=== PATIENT | male | born 1990 | race Caucasian/White ===

== ENCOUNTER 2017-11-04 13:07 | Emergency (ER) | payer MEDICAID ==
[~2017-11-04] VITALS: Ht 180.3 cm; Wt 65.9 kg
[2017-11-04 13:56] VITALS: BP 129/70; Ht 180.3 cm; Wt 65.9 kg
[2017-11-04] MEDS ORDERED: IBUPROFEN800 MG PO (15:21)
[2017-11-04] MEDS ORDERED: CLEOCIN HCL300 MG PO (15:21)
[2017-11-05] MEDS ORDERED: NORCO 7.5/325 T1 TA1 PO (13:54)
== END 2017-11-04 15:29 | disposition home or self-care (01) ==
LOC: D.ER 13:07
DX: L02.512 Cutaneous abscess of left hand (principal); Z87.820 Personal history of traumatic brain injury; F17.200 Nicotine dependence, unspecified, uncomplicated

== ENCOUNTER 2017-11-05 12:27 | Emergency (ER) | payer MEDICAID ==
[~2017-11-05] VITALS: Ht 180.3 cm; Wt 67.3 kg
[~2017-11-05 12:27] MED LIST: CLEOCIN HCL300 MG PO; IBUPROFEN800 MG PO
[2017-11-05 12:41] VITALS: Ht 180.3 cm; Wt 67.3 kg
[2017-11-05] MEDS ORDERED: NORCO 7.5/325 T1 TA1 PO (13:54)
[2017-11-05 14:27] VITALS: BP 132/91
== END 2017-11-05 14:30 | disposition home or self-care (01) ==
LOC: D.ER 12:27
DX: S60.411A Abrasion of left index finger, initial encounter (principal); W18.30XA Fall on same level, unspecified, initial encounter; Y93.89 Activity, other specified; Y92.410 Unspecified street and highway as the place of occurrence of the external cause; S61.301A Unspecified open wound of left index finger with damage to nail, initial encounter; Z87.820 Personal history of traumatic brain injury; F17.200 Nicotine dependence, unspecified, uncomplicated

== ENCOUNTER 2018-01-07 10:31 | Emergency (ER) | payer MEDICAID ==
[~2018-01-07] VITALS: Ht 180.3 cm; Wt 69.5 kg
[~2018-01-07 10:31] MED LIST changes: +NORCO 7.5/325 T1 TA1 PO
[2018-01-07 10:43] VITALS: Ht 180.3 cm; Wt 69.5 kg
[2018-01-07] MEDS ORDERED: ULTRAM50 MG PO (11:02)
[2018-01-07] MEDS ORDERED: MINOCIN100 MG PO (11:02)
[2018-01-07 11:14] VITALS: BP 114/76
== END 2018-01-07 11:14 | disposition home or self-care (01) ==
LOC: D.ER 10:31
DX: L03.114 Cellulitis of left upper limb (principal); Z87.820 Personal history of traumatic brain injury; F17.200 Nicotine dependence, unspecified, uncomplicated

== ENCOUNTER 2018-05-27 15:47 | Emergency (ER) | payer MEDICAID ==
[~2018-05-27] VITALS: Ht 180.3 cm; Wt 77.3 kg
[~2018-05-27 15:47] MED LIST changes: +MINOCIN100 MG PO; +ULTRAM50 MG PO
[2018-05-27 15:48] VITALS: Ht 180.3 cm; Wt 77.3 kg
[2018-05-27] MEDS ORDERED: AUGMENTIN 875-11 TAB PO (17:01)
[2018-05-27] MEDS ORDERED: IBUPROFEN800 MG PO (17:01)
[2018-05-27 17:21] VITALS: BP 127/68
== END 2018-05-27 17:22 | disposition home or self-care (01) ==
LOC: D.ER 15:47
DX: S00.85XA Superficial foreign body of other part of head, initial encounter (principal); W22.8XXA Striking against or struck by other objects, initial encounter; Y93.89 Activity, other specified; Y92.89 Other specified places as the place of occurrence of the external cause

== ENCOUNTER 2018-09-06 18:19 | Emergency (ER) | payer MEDICAID ==
[~2018-09-06] VITALS: Ht 180.3 cm; Wt 75.0 kg
[~2018-09-06 18:19] MED LIST changes: +AUGMENTIN 875-11 TAB PO
[2018-09-06 18:31] VITALS: Ht 180.3 cm; Wt 75.0 kg
[2018-09-06 19:07] LABS: UDS - AMPHET POSITIVE QUAL (NEGATIVE); UDS - BARB NEGATIVE QUAL (NEGATIVE); UDS - BENZO POSITIVE QUAL (NEGATIVE); UDS - COCAINE NEGATIVE QUAL (NEGATIVE); UDS - OPIATE NEGATIVE QUAL (NEGATIVE); UDS - PCP NEGATIVE QUAL (NEGATIVE); UDS - THC POSITIVE QUAL (NEGATIVE)
[2018-09-06 19:09] LABS: APPEARANCE CLEAR (CLEAR); BILIRUBIN NEGATIVE (NEGATIVE); COLOR YELLOW (YELLOW); GLUCOSE NEGATIVE (NEGATIVE); KETONE NEGATIVE (NEGATIVE); NITRITE NEGATIVE (NEGATIVE); PROTEIN TRACE mg/dL (NEGATIVE); SPECIFIC GRAVITY 1.025 (1.005-1.020); UROBILINOGEN NORMAL (NORMAL)
[2018-09-06 19:10] LABS: WHITE CELLS - URINE 0-5 /hpf (0-5)
[2018-09-06 19:11] LABS: BACTERIA MODERATE /hpf (NONE SEEN)
[2018-09-06 19:22] LABS: BASOPHILS 0.2 % (0-2); EOSINOPHILS 1.7 % (0-7); HEMATOCRIT 40.3 % (42.0-54.0); HEMOGLOBIN 13.8 g/dL (13.5-17.5); IMMATURE GRANULOCYTES 0.5 % (0-5); LYMPHOCYTES 14.2 % (15-50); MCH 30.1 pg (26.0-34.0); MCHC 34.2 g/dL (31.0-37.0); MCV 87.8 fL (80.0-100.0); MEAN PLATELET VOLUME 8.7 fL (7.4-10.4); MONOCYTES 6.5 % (2-11); NEUTROPHILS 76.9 % (40-80); PLATELET COUNT 251 10x3/uL (130-400); RBC 4.59 10x6/uL (4.20-6.10); RDW 12.7 % (11.5-14.5); WBC 9.3 10x3/uL (4.8-10.8)
[2018-09-06 19:31] LABS: APTT 23.9 SECONDS (22.8-39.4); INR 1.1 (0.85-1.17); PROTIME 13.7 SECONDS (11.6-15.0)
[2018-09-06 19:52] LABS: ALBUMIN 3.4 g/dL (3.4-5.0); ALKALINE PHOSPHATASE 83 U/L (46-116); ALT (SGPT) 21 U/L (10-68); BILIRUBIN - TOTAL 0.24 mg/dL (0.2-1.3); CALC OSMOLALITY 278 mosm/kg (275-300); CALCIUM 8.3 mg/dL (8.5-10.1); CARBON DIOXIDE 20.3 mmol/L (21.0-32.0); CHLORIDE - SERUM 103 mmol/L (98-107); CREATININE - SERUM 1.4 mg/dL (0.6-1.3); GLUCOSE 125 mg/dL (74-106); POTASSIUM - SERUM 3.6 mmol/L (3.5-5.1); PROTEIN - SERUM 6.5 g/dL (6.4-8.2); SODIUM 139 mmol/L (136-145); UREA NITROGEN 12 mg/dL (7-18); eGFR NON AFRICAN AMERICAN 64 mL/min (90-120)
[2018-09-06 19:56] LABS: CKMB 2.9 U/L (0.0-3.6); CREATINE KINASE 161 UL (21-232); MAGNESIUM - SERUM 2.3 mg/dL (1.8-2.4)
[2018-09-06 20:00] LABS: TROPONIN-I < 0.017 ng/mL (0.000-0.060)
[2018-09-06 20:48] VITALS: BP 116/80
== END 2018-09-06 20:55 | disposition other institution (70) ==
LOC: D.ER 18:19
PROVIDERS: Family Medicine
DX: G40.901 Epilepsy, unspecified, not intractable, with status epilepticus (principal); R41.82 Altered mental status, unspecified; F15.129 Other stimulant abuse with intoxication, unspecified

== ENCOUNTER 2019-02-14 17:38 | Emergency (ER) | payer MEDICAID ==
[~2019-02-14] VITALS: Ht 180.3 cm; Wt 69.1 kg
[2019-02-14 18:11] VITALS: Ht 180.3 cm; Wt 69.1 kg
[2019-02-14] MEDS ORDERED: VOLTAREN75 MG PO (18:58)
[2019-02-14 19:45] VITALS: BP 142/74
== END 2019-02-14 19:45 | disposition home or self-care (01) ==
LOC: D.ER 17:38
DX: S69.91XA Unspecified injury of right wrist, hand and finger(s), initial encounter (principal); W19.XXXA Unspecified fall, initial encounter; Y93.9 Activity, unspecified; Y92.9 Unspecified place or not applicable; M25.531 Pain in right wrist